=== PATIENT | male | born 2000 | race Caucasian/White ===

== ENCOUNTER 2023-03-02 13:07 | Emergency (ER) | payer MEDICAID, SELFPAY ==
[2023-03-02 13:13] VITALS: BP 139/75; PULSE 88; RESP 16; TEMP 36.4; O2SAT 100
--- NOTE | 2023-03-02 13:17 | ED.URI ---
HPI - URI/Sore Throat General Chief Complaint: Upper Respiratory Infection Stated Complaint: Asthma History of Present Illness HPI Narrative: patient presents requesting a refill on his inhaler. Patient has cupping by his mother states he had asthma child and has not had any problems in several years. Patient states the last 6 months he has had wheezing and shortness of breath times. Related Data Allergies Allergy/AdvReac Type Severity Reaction Status Date / Time prochlorperazine Allergy Hives Verified 03/02/23 13:20 [From Compazine] Review of Systems Review of Systems: CONSTITUTIONAL: Denies chills, or sweats. Reports fever and generalized body aches EYES: Denies visual changes, redness, or discharge. ENT: Denies otalgia. Reports nasal congestion runny nose and sore throat CARDIOVASCULAR: Denies chest pain, palpitations, or edema. RESPIRATORY: Denies dyspnea. Reports occasional cough GASTROINTESTINAL: Denies abdominal pain, nausea, vomiting, or diarrhea. GENITOURINARY: Denies dysuria or hematuria. SKIN: Denies rash or itching. MUSCULOSKELETAL: Denies back pain, joint pain, or myalgia. Reports generalized body aches NEUROLOGIC: Denies headache, numbness, or weakness. PSYCHIATRIC: Denies anxiety or depression. [facility] Comments At time of signature, agree with nursing past medical, surgical, social and family history. There is no relevant family history pertinent to the presenting complaint Exam Narrative: The patient is a well-developed, well-nourished in no acute distress. SKIN: Skin is warm and dry without erythema, swelling or exudate. There is good turgor. No tenting. HEAD: Atraumatic. Normocephalic. No temporal or scalp tenderness. EYES: Moist and bright. Sclera and conjunctivae normal. No discharge. PERRLA. Extraocular motions intact. Gross visual acuity intact. EARS: Pinna is normal shape and contour. Clear external auditory canals. TM pearly mendez with good cone of light, no erythema or suppuration. Bilateral cerumen noted no gross hearing deficit. NOSE: pink, moist mucosa with good air movement. Clear rhinorrhea without nasal flaring. Septum midline. Mouth: moist mucous membranes. THROAT; mild erythema noted to posterior oropharynx with moderate postnasal drainage. Without exudate or ulceration.. Uvula midline. Normal movement of soft palate. NECK: Supple and nontender with full range of motion without discomfort. No meningeal signs. LUNGS: Equal and bilateral breath sounds Few scattered upper lobe wheezes, no rales or rhonchi. CHEST: The chest wall is without retractions or use of accessory muscles. HEART: Has a regular rate and rhythm without murmur, gallops, click or rub. ABDOMEN: Soft, nontender with positive active bowel sounds. No rebound tenderness. EXTREMITIES: Without cyanosis, clubbing or edema. Equal 2+ distal pulses and 2 second capillary refill noted. NEUROLOGIC: alert, active, . The patient moves all extremities with normal muscle strength. Normal muscle tone is noted. Normal coordination is noted. NO focal neurological findings noted. Course Course Level of Care: Express Care Visit Discharge Plan Discharge Clinical Impression: Asthma, Asthma exacerbation Patient Disposition: Home, Self-Care Condition: Stable Instructions: Asthma (DC) Additional Instructions: follow-up with primary care provider in 3-4 days as needed for re-evaluation Inhaler and medication as prescribed If any new or worsening symptoms please go to ER immediately further evaluation treatment Prescriptions: New cetirizine [Zyrtec] 10 mg tablet 10 mg PO DAILY Qty: 14 0RF prednisone 20 mg tablet 40 mg PO DAILY 5 Days Qty: 10 0RF montelukast [Singulair] 10 mg tablet 10 mg PO HS Qty: 30 0RF albuterol sulfate 90 mcg/actuation HFA aerosol inhaler 2 puff inhalation QID PRN (Reason: shortness of breath or wheezing) Qty: 1 1RF fluticasone propionate [Flovent HFA] 110 mcg/actuatio
== END 2023-03-02 13:33 | disposition home or self-care (01) ==
PROVIDERS: Emergency Provider Nurse Practitioner Family
DX: J45.901 Unspecified asthma with (acute) exacerbation (principal)
CPT/HCPCS: 99213; G0463

== ENCOUNTER 2023-03-15 17:10 | Emergency (ER) | payer MEDICAID, SELFPAY ==
--- NOTE | ~2023-03-15 | XR_ITS ---
EXAM: XR finger 2nd LT min 2V DATE: 03/15/2023 17:36 HISTORY: smash injury 2nd digit . COMPARISON: None available. FINDINGS: Normal mineralization. No fracture or dislocation. No lytic or blastic lesion. Joint space s are maintained. No erosion or periosteal change. Distal soft tissue swelling. IMPRESSION: No acute osseous finding in the right second digit. Reviewed, dictated and finalized at location K[employer]
[2023-03-15 17:20] VITALS: BP 127/83; PULSE 91; RESP 20; TEMP 36.4; O2SAT 100
--- NOTE | 2023-03-15 19:11 | ED.UPPEXIN ---
HPI - Extremity Injury (Upper) General Chief Complaint: Extremity Injury, Upper Stated Complaint: finger injury Time Seen by Provider: 03/15/23 19:06 History of Present Illness HPI narrative: 22-year-old male reports for evaluation for a laceration to his left 2nd finger that occurred a few hours prior to arrival. Patient states he was installing a wood floor when he accidentally smashed his finger against the floor and mallet. Bleeding controlled. He is not anticoagulated. He has full range of motion of his digit. No other injuries acquired. States he believes his tetanus has been updated in the past 10 years. Related Data Allergies Allergy/AdvReac Type Severity Reaction Status Date / Time prochlorperazine Allergy Hives Verified 03/15/23 17:22 [From Compazine] Review of Systems Review of Systems: CONSTITUTIONAL: Denies fever, chills, or sweats. EYES: Denies visual changes, redness, or discharge. ENT: Denies rhinorrhea, congestion, sore throat, or otalgia. CARDIOVASCULAR: Denies chest pain, palpitations, or edema. RESPIRATORY: Denies cough or dyspnea. GASTROINTESTINAL: Denies abdominal pain, nausea, vomiting, or diarrhea. GENITOURINARY: Denies dysuria or hematuria. SKIN: See HPI MUSCULOSKELETAL: HPI NEUROLOGIC: Denies headache, numbness, or weakness. PSYCHIATRIC: Denies anxiety or depression. Exam Narrative: GENERAL: Well-appearing, well-nourished, and in no acute distress. HEAD: Normocephalic, atraumatic. NECK: Supple. CHEST: Clear to auscultation. No respiratory distress. HEART: Regular rate and rhythm. No murmur heard. Normal peripheral pulses. EXTREMITIES: Normal range of motion. No edema. SKIN: L 2nd finger with 1cm linear laceration to the fat pad of his distal phalanx. Bleeding controlled. No deep structures or foreign bodies visualized. Cap refill less than 2. Full extension and flexion of the finger. No nail involvement. No subungual hematoma. No tenderness to remainder of finger or hand. Radial pulse 2+. NEURO: No focal deficits. Alert and oriented x3 Course Vital Signs Vital signs: Vital Signs Temperature 97.6 F 03/15/23 17:20 Pulse Rate 91 03/15/23 17:20 Respiratory Rate 20 03/15/23 17:20 Blood Pressure 127/83 03/15/23 17:20 Pulse Oximetry 100 03/15/23 17:20 Oxygen Delivery Room Air 03/15/23 17:20 Temperature 97.6 F 03/15/23 17:20 Pulse Rate 91 03/15/23 17:20 Respiratory Rate 20 03/15/23 17:20 Blood Pressure 127/83 03/15/23 17:20 Pulse Oximetry 100 03/15/23 17:20 Oxygen Delivery Room Air 03/15/23 17:20 Procedures Laceration Laceration 1: Date: 03/15/23 Time: 20:09 Site: upper extremity and hand Side (If applicable): left Size (cm): 1 Description: linear Depth: simple, single layer Local Anesthetic: lidocaine 1% Amount of anesthesia used (mL): 2 Pre-repair: wound explored, irrigated and irrigated extensively ====== Skin Level ====== Skin layer closed with: nylon Size (cm): 5-0 Number of sutures: 2 Technique: simple, interrupted ====== Subcutaneous Layer ====== ====== Muscle Layer ====== ====== Tendon Layer ====== MDM - Extremity Injury (Upper) [facility] Narrative Medical decision making narrative: 22-year-old male reports for evaluation for a laceration to his left 2nd digit that occurred prior to arrival. See HPI for further history. Vitals are stable. Exam is significant for the above. He is neurovascularly intact with full range of motion. No nail involvement. No subungual hematoma. No deep structures or foreign bodies visualized. Bleeding controlled. X-ray showed no acute osseous abnormality. Patient believes his tetanus vaccination is up to date. I did offer a Tdap given uncertainty, however he declined. Digital block administered, laceration irrigated extensively with normal saline and closed with 2 sutu
== END 2023-03-15 20:59 | disposition home or self-care (01) ==
PROVIDERS: Emergency Provider Physician Assistant
DX: S61.211A Laceration without foreign body of left index finger without damage to nail, initial encounter (principal); W27.8XXA Contact with other nonpowered hand tool, initial encounter
CPT/HCPCS: 12001; 73140; 99283

== ENCOUNTER 2023-05-30 09:18 | Emergency (ER) | payer OTHER, SELFPAY ==
[2023-05-30 09:30] VITALS: BP 126/77; PULSE 81; RESP 16; TEMP 37.1; O2SAT 100
--- NOTE | 2023-05-30 09:42 | ED.URI ---
HPI - URI/Sore Throat General Chief Complaint: Upper Respiratory Infection Stated Complaint: Shortness of Breath/Asthma/Cough Source: patient Mode of arrival: ambulatory Limitations: no limitations History of Present Illness HPI Narrative: 22-year-old male with a history of asthma presented for complaint of worsening shortness of breath and wheezing over the past few weeks. states he ran out of his albuterol inhaler 03/13. states symptoms are worse in the morning and at night. Endorses when he walks outside to breathe in the cool air his symptoms improve. He denies chest pain, palpitations, nausea vomiting, fevers or chills. He takes cetirizine daily. He has run out of his albuterol inhaler Related Data Allergies Allergy/AdvReac Type Severity Reaction Status Date / Time amoxicillin Allergy Unknown Verified 05/30/23 09:30 prochlorperazine Allergy Hives Verified 03/15/23 17:22 [From Compazine] Review of Systems Review of Systems: CONSTITUTIONAL: Denies body aches, fever, chills, or sweats. EYES: Denies visual changes, redness, or discharge. ENT: Denies rhinorrhea, congestion, sore throat, or otalgia. CARDIOVASCULAR: Denies chest pain, palpitations, or edema. RESPIRATORY: Reports cough, sob, wheezing. GASTROINTESTINAL: Denies abdominal pain, nausea, vomiting, or diarrhea. GENITOURINARY: Denies dysuria or hematuria. SKIN: Denies rash, itching, or wounds. MUSCULOSKELETAL: Denies back pain, joint pain, or myalgia. NEUROLOGIC: Denies headache, numbness, tingling, or weakness. All systems reviewed & are unremarkable except as noted in HPI and below [facility] Past Medical History Medical History (Updated 05/30/23 @ 09:51 by Loraine Botello APRN) Asthma Social History Social History (Updated 05/30/23 @ 09:51 by Loraine Botello APRN) Smoking status: Former smoker Tobacco type: cigarettes Comments At time of signature, I have reviewed and agree with nursing past medical, surgical, social and family history unless otherwise noted. Please see nursing chart for further information. There is no relevant family history pertinent to the presenting complaint Exam Narrative: GENERAL: Well-appearing, in no acute distress. EYES: EOMI. No redness or drainage. Conjunctivae normal. ENT: Mucous membranes pink and moist. No rhinorrhea. TMs normal bilaterally. Throat normal. Uvula midline. NECK: Normal AROM. Supple. CHEST: No respiratory distress. left anterior wheezing noted otherwise clear. HEART: Regular rate and rhythm. No murmur appreciated. ABDOMEN: Soft, nontender, nondistended, normal active bowel sounds. EXTREMITIES: Normal range of motion. No edema. SKIN: Warm, dry, no rash. Capillary refill normal. Normal skin turgor. NEURO: Alert and oriented x3. Gait steady. PSYCH: Normal affect. Course Course Emergency Course: Patient is aware of diagnosis, understands and agrees to treatment plan. Anticipatory guidance given. Patient agrees to follow-up as directed and is aware of reasons to seek care at the emergency department. Portions of this record may have been created with voice recognition software Level of Care: Express Care Visit Vital Signs Vital signs: Vital Signs Temperature 98.7 F 05/30/23 09:30 Pulse Rate 81 05/30/23 09:30 Respiratory Rate 16 05/30/23 09:30 Blood Pressure 126/77 05/30/23 09:30 Pulse Oximetry 100 05/30/23 09:30 Oxygen Delivery Room Air 05/30/23 09:30 Temperature 98.7 F 05/30/23 09:30 Pulse Rate 81 05/30/23 09:30 Respiratory Rate 16 05/30/23 09:30 Blood Pressure 126/77 05/30/23 09:30 Pulse Oximetry 100 05/30/23 09:30 Oxygen Delivery Room Air 05/30/23 09:30 MDM - URI/Sore Throat MDM Narrative Medical decision making narrative: Discussed physical exam findings consistent with bronchitis. Refill albuterol. Advised supportive measures and signs/symptoms to go to the ER. Pt is appropriate for outpt treatment and
== END 2023-05-30 10:00 | disposition home or self-care (01) ==
PROVIDERS: Emergency Provider Nurse Practitioner Family
DX: J40 Bronchitis, not specified as acute or chronic (principal); Z87.891 Personal history of nicotine dependence; J45.909 Unspecified asthma, uncomplicated
CPT/HCPCS: 99213; G0463

== ENCOUNTER 2023-07-04 14:34 | Outpatient (CLI) | payer OTHER, SELFPAY ==
--- NOTE | 2023-07-05 14:44 | WPDPFTINT ---
PFT Procedure Performed PFT Procedure Performed Spirometry with Pre/Post Bronchodilator Plethysmography (Lung Vol) Diffusing Cap (DLCO) Flow Vol Loop PFT Interpretation This is a pulmonary function test with pre and post-bronchodilator spirometry, plethysmography and diffusing capacity. The test was performed and results interpreted in accordance with the 2019 and 2005 ATS/ERS Task Force guidelines respectively using the Global Lung Function Initiative-2012 reference equations. Patient demonstrated good effort and cooperation. Reproducibility criteria were met. The quality of the pre bronchodilator spirometry maneuver was Grade A and post bronchodilator spirometry maneuver was Grade A. Findings: Spirometry: The contour the inspiratory and expiratory flow tracing are normal. The pre bronchodilator FVC is 6.25 L, 117% predicted. The pre bronchodilator FEV1 is 4.73 L, 105% predicted. The pre bronchodilator FEV1: FVC ratio 76%. The post bronchodilator FVC is 6.41 L, representing a 2% increase. The post bronchodilator FEV1 is 5.17 L, representing a 9% increase. The post bronchodilator FEV1: FVC ratio is 81%. Plethysmography: The total lung capacity is 7.46 L, 112% predicted. The functional residual capacity is 2.95 L, 93% predicted. The residual volume is 1.21 L, 86% predicted. Diffusing capacity: The diffusing capacity unadjusted for hemoglobin and carboxyhemoglobin is 33.4, 91% predicted. The diffusing capacity adjusted for alveolar volume is 4.77, 87% predicted. Impression: The spirometry is normal without evidence of an obstructive abnormality. There is no significant improvement after inhaling a single dose of albuterol. The lung volumes are normal. The diffusing capacity is normal. There are no prior studies for comparison
== END 2023-07-04 14:35 | disposition home or self-care (01) ==
PROVIDERS: Visit Provider Family Medicine
DX: Z87.09 Personal history of other diseases of the respiratory system (principal)
CPT/HCPCS: 94060; 94726; 94729